=== PATIENT | male | born 2000 | race Caucasian/White ===

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

== ENCOUNTER 2019-06-20 04:24 | Emergency (ER) | payer SELFPAY ==
[~2019-06-20] VITALS: Ht 177.8 cm; Wt 65.9 kg
[2019-06-20 04:37] VITALS: TEMP 98
[2019-06-20 05:29] LABS: ALCOHOL(ethanol),MEDICAL 119 mg/dL; LIPASE 27 U/L (23-300)
[2019-06-20 06:47] LABS: TRICYCLIC ANTIDEPRESS URINE NEGATIVE
[2019-06-20 06:59] VITALS: BP 96/55; PULSE 75
== END 2019-06-20 07:10 | disposition home or self-care (01) ==
LOC: COL.ER 04:24
PROVIDERS: Emergency Medicine
DX: F10.129 Alcohol abuse with intoxication, unspecified (principal); Y90.5 Blood alcohol level of 100-119 mg/100 ml
CPT/HCPCS: J2405; J7030